=== PATIENT | female | born 1945 | race Two or more races ===

== ENCOUNTER 2017-10-22 08:43 | Emergency (ER) | payer MEDICAID, MEDICARE ==
[~2017-10-22] VITALS: Ht 154.9 cm; Wt 60.3 kg
[2017-10-22 08:50] VITALS: BP 110/87
== END 2017-10-22 09:56 | disposition home or self-care (01) ==
LOC: ER 08:45
DX: R13.10 Dysphagia, unspecified (principal); I10 Essential (primary) hypertension; J44.9 Chronic obstructive pulmonary disease, unspecified
CPT/HCPCS: A4606; Z7610

== ENCOUNTER 2017-11-04 17:21 | Emergency (ER) | payer MEDICARE, OTHER ==
[~2017-11-04] VITALS: Ht 152.4 cm; Wt 61.7 kg
--- NOTE | 2017-11-04 17:27 | NUR ---
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 NO FOCAL DEFICIT. SKIN IS WARM AND DRY. FACE SYMMETRICAL. 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 PLACED ON THE MONITOR. DR PARKS MADE AWARE. AWAITING MD FOR EVAL.
[2017-11-04 17:50] LABS: BASOPHILS # (AUTO) 0.2 /CMM (0.0-0.2); BASOPHILS % (AUTO) 2.9 % (0.0-2.0); EOSINOPHILS % (AUTO) 1.2 % (0.0-6.0); HEMATOCRIT 35 % (33-45); HEMOGLOBIN 11.8 g/dL (11.5-14.8); LYMPHOCYTES # (AUTO) 1.8 /CMM (0.8-4.8); LYMPHOCYTES % (AUTO) 23.7 % (20.0-44.0); MEAN CORPUSCULAR HGB CONC 34 g/dl (31.0-36.0); MEAN CORPUSCULAR VOLUME 93 fL (82-100); MONOCYTES # (AUTO) 0.7 /CMM (0.1-1.30); MONOCYTES % (AUTO) 8.8 % (2.0-12.0); NEUTROPHILS # (AUTO) 4.9 /CMM (1.8-8.9); NEUTROPHILS % (AUTO) 63.4 % (43.0-81.0); PLATELET COUNT (AUTO) 496 /CMM (150-450); RDW COEFFICIENT OF VARIATION 12.8 (11.5-15.0); RED BLOOD CELL COUNT(AUTO) 3.76 MIL/uL (4.0-5.2); WHITE BLOOD COUNT (AUTO) 7.7 K/uL (4.3-11.0)
[2017-11-04] MEDS ORDERED: LOSA50TA21 PO (17:59)
[2017-11-04] MEDS ORDERED: FOLI0.4T2 PO (17:59)
[2017-11-04] MEDS ORDERED: VITA1TAB56 PO (17:59)
[2017-11-04] MEDS ORDERED: MAGN400T26 PO (17:59)
[2017-11-04] MEDS ORDERED: ALBU18HF2 IH (17:59)
[2017-11-04] MEDS ORDERED: OMEG1CAP40 PO (17:59)
[2017-11-04] MEDS ORDERED: ASCO500T9 PO (17:59)
[2017-11-04] MEDS ORDERED: OMEP20CA10 PO (17:59)
[2017-11-04] MEDS ORDERED: ASPI-1169 PO (17:59)
[2017-11-04] MEDS ORDERED: BIMA2.5D5 EACHEYE (17:59)
[2017-11-04] MEDS ORDERED: BIOT5000 PO (17:59)
[2017-11-04] MEDS ORDERED: FERR325T23 PO (17:59)
[2017-11-04 18:01] LABS: CALCIUM, SERUM 9.9 mg/dL (8.5-10.1); CARBON DIOXIDE 29 mmol/L (21-32); CHLORIDE 99 mmol/L (98-107); GLUCOSE 112 mg/dL (74-106); POTASSIUM 3.9 mmol/L (3.5-5.1); SODIUM SERUM 133 mmol/L (136-145); UREA NITROGEN, BLOOD 17 mg/dL (7-18)
[2017-11-04 18:04] LABS: INR 0.87 (0.85-1.15)
--- NOTE | 2017-11-04 18:36 | NUR ---
CALLED [facility] ENVIRONMENTAL TECH WAS PAGED.
[2017-11-04] MEDS ORDERED: ASPIRIN 325 MG TABLET ONE (18:57)
[2017-11-04] MEDS ORDERED: ASPIRIN 325 MG TABLET PO ONE (19:00)
--- NOTE | 2017-11-04 19:01 | NUR ---
ENDORSED TO ANKUR JENNINGS FOR [place].
[2017-11-04 19:09] VITALS: BP 103/99
--- NOTE | 2017-11-04 19:09 | NUR ---
IV removed. Catheter intact and site benign. Pressure and 4x4 applied to site. No bleeding noted.
--- NOTE | 2017-11-04 19:09 | NUR ---
Patient does not wish to proceed with medical care recommended by Dr. PARKS. Patient given information related to possible complications, up to and including , which could occur as a result of leaving the hospital at this time. Patient verbalizes understanding of risks involved due to leaving against medical advice. Patient has signed AMA form.
== END 2017-11-04 19:10 | disposition left against medical advice (07) ==
LOC: ER 17:22
DX: R20.0 Anesthesia of skin (principal); R79.1 Abnormal coagulation profile; J44.9 Chronic obstructive pulmonary disease, unspecified; I10 Essential (primary) hypertension; Z79.82 Long term (current) use of aspirin; Z98.890 Other specified postprocedural states
CPT/HCPCS: 36415; 70450; 71045; 80048; 85025; 85730; 93005; 99285; A4606; Z7610